=== PATIENT | female | born 1980 | race African-American/Black ===

== ENCOUNTER 2019-03-08 14:17 | Emergency (ER) | payer OTHER ==
--- NOTE | 2019-03-08 14:23 | PDOC ---
Rapid Medical Evaluation Time Seen by Provider: 03/08/19 14:21 Medical Evaluation: 03/08/19 14:21 HPI: Back pain and abdominal pain x 2 days PE: no gross deficit ORDERS Labs and Tylenol 03/08/19 14:23 Discharge Disposition - Diagnosis Back pain - Referrals - Patient Instructions - Post Discharge Activity
[2019-03-08] MEDS ORDERED: ACETAMINOPHEN 500 MG TABLET (FP) PO ONE (14:24)
[2019-03-08 14:26] VITALS: PULSE 109; BMI 33.2
[2019-03-08] MEDS ORDERED: SODIUM CHLORIDE 0.9% 500 ML INFUS.BAG IV ONE ×2 (14:45→15:36)
[2019-03-08] MEDS ORDERED: morphine CARPU-JECT 4 MG/1 ML DISP.SYRIN IVPUSH ONE (15:36)
[2019-03-08] MEDS ORDERED: ONDANSETRON 4 MG/2 ML VIAL IVPUSH ONE (15:37)
--- NOTE | 2019-03-08 15:38 | PDOC ---
Documentation entered by Susan Jane SCRIBE, acting as scribe for Christal Price MD. Christal Price MD: This documentation has been prepared by the Lucinda lane Adrianna, SCRIBE, under my direction and personally reviewed by me in its entirety. I confirm that the documentation accurately reflects all work, treatment, procedures, and medical decision making performed by me. History of Present Illness - General Chief Complaint: Pain Stated Complaint: BACK PAIN/ABDOMINAL PAIN Time Seen by Provider: 03/08/19 14:21 History Source: Patient Exam Limitations: No Limitations - History of Present Illness Initial Comments: 03/08/19 17:05 The patient is a 38 year old female, with a PMH of HTN, presenting with abdominal pain for 4 days. Patient notes complains of diffuse abdominal pain, worst at the suprapubic region, tender to touch, exacerbated with passing bowel or urination, and is described as sore inside. She endorses associated low back pain that radiates to the mid-back and bilateral thighs. Patient reports one episode of loose, watery stool today without blood, and increased urinary frequency (which she associates with her BP medications). She reports feeling nauseous, but denies any vomit at this time. Patient complains of chest pain that is induced when the abdominal pain is present. She reports feeling dizzy yesterday, but denies any dizziness today. Patient endorses a mild headache and generalized weakness while in the ED. She has tried motrin (for her pain) with some relief of symptoms. Denies chills, cough, runny nose, SOB, palpitation, hematuria, numbness, tingling, leg swelling, rash. No sick contacts or travel. No new changes in medications. No suspicious food intake. Allergies: None Past Medical History: as documented in EMR/HPI Social history: Lives with family. No tobacco, ETOH or drug use. Surgical history: x2 Meds: as documented in EMR Family history: noncontributory PMD: Dr. Longoria Past History - Past Medical History Allergies/Adverse Reactions: Allergies Allergy/AdvReac Type Severity Reaction Status Date / Time No Known Allergies Allergy Verified 03/08/19 14:23 COPD: No HTN: Yes - Suicide/Smoking/Psychosocial Hx Smoking History: Never smoked Review of Systems - Review of Systems Comments:: 03/08/19 17:05 Review of systems Constitutional: +Fever. +Generalized weakness. no chills. No weakness HEENT: +Mild headache. +One episode of dizziness yesterday. No congestion. No visual/hearing disturbances. CVS: +Chest pain (secondary to abdominal pain) no syncope. Resp: no sob. No cough. Gastrointestinal: +Diffuse abdominal pain, worst at the suprapubic region. + Nausea. +Abdominal pain with urination. +Diarrhea. +Abdominal pain with passing stool. no vomiting. Genitourinary: +Urinary frequency (believed to be secondary to HTN meds). no hematuria. MUSCULOSKELETAL: +Low back pain that radiates to the mid back and bilateral thighs. No joint swelling. No neck pain. SKIN: no redness or skin changes, no discharge, no rash. No wounds. Hematologic: no easy bruising/bleeding. NEUROLOGIC: +Mild headache. +One episode of dizziness yesterday. No LOC or altered mental status. No numbness or tingling. Psych: no anxiety or depression Allergic/Immunologic: no allergies All other systems reviewed and negative, or as documented in HPI. *Physical Exam - Vital Signs Last Vital Signs Temp Pulse Resp BP Pulse Ox 102.4 F H 109 H 20 143/90 98 03/08/19 14:23 03/08/19 14:23 03/08/19 14:23 03/08/19 14:23 03/08/19 14:23 - Physical Exam Comments: 03/08/19 17:05 Physical exam General: +Febrile. malaised appearing. awake and alert HEENT: NCAT, PERRL, EOMI, clear conjunctiva, anicteric, moist mucus membranes, clear oropharynx, no oral lesions.. Neck: neck supple, FROM Resp: CTAB, normal and even respirations, no respiratory distress CVS: tachycardic., no murmurs, 2+ peripheral pulses throughout, no peripheral edema Abdomen: +Diffuse abdominal tenderness to palpation. +Left sided and suprapubic region rebound tenderness. soft, ND, no guarding. No CVAT. no flank tenderness. Back: nontender, normal inspection and ROM. no flank tenderness. MSK: no edema, HAQ x4, ROM intact. No clubbing or cyanosis. normal bulk and tone. Extremities: no calf tenderness Neuro: alert, oriented appropriately; no focal neurologic deficits Psych: Calm and cooperative Skin: warm and well perfused, cap refill <2 sec, normal color 03/08/19 21:02 ED Treatment Course - LABORATORY CBC & Chemistry Diagram: 03/08/19 16:30 03/08/19 16:30 - RADIOLOGY Radiology Studies Ordered: Category Date Time Status ABDOMEN & PELVIS CT WITH CONTR [CT] Stat CT Scan 03/08/19 15:37 Ordered Medical Decision Making - Medical Decision Making 03/08/19 15:38 See HPI for details. Prior notes reviewed, including admissions, discharges and consultations. Vital signs reviewed, +fever and tachycardia Vital Signs Temp Pulse Resp BP Pulse Ox 102.4 F H 109 H 20 143/90 98 03/08/19 14:23 03/08/19 14:23 03/08/19 14:23 03/08/19 14:23 03/08/19 14:23 DDx abdominal pain: Renal colic, biliary colic, metabolic/electrolyte derangements. GERD, PUD, esophageal spasm, pancreatitis, hepatitis, constipation , colitis, gastroenteritis, cholecystitis, UTI, pyelonephritis, ileus, SBO, medication side effect, hernia, appendicitis, diverticulitis, mesenteric ischemia. msk strain, mesenteric adenitis, psoas abscess. ovarian cyst/rupture. laboratory results and imaging reviewed, basic labs and lytes wnl, notable for normal wbc ct LFTs/lipase_normal UA_unremarkable, some ketones/protein; no s/s infection. ED course -interventions:IVF, tylenol, analgesia, zofran, reassess CT a/p to eval for appy, diverticulitis, intra abdominal infection/inflammation. could be early gastroenteritis with diarrhea/AP and fever, CT to better delineate etiology CT scan with IV contrast The patient has been educated on the risks and benefits of exam including nephrotoxicity/renal injury and organ failure. Hydration with IV fluids GFR 60-45 can receive oral hydration. spoke with Dr Montes, can get CT scan with IV contrast with labs. s/o pending CT imaging, repeat VS, reeval and ultimate dispo. 03/08/19 18:18 03/08/19 20:39 03/08/19 20:40 *DC/Admit/Observation/Transfer Diagnosis at time of Disposition: Abdominal pain, Fever - Discharge Dispostion Condition at time of disposition: Stable Decision to Admit order: No - Referrals Referrals: Jonas Longoria MD [Primary Care Provider] - - Patient Instructions - Post Discharge Activity
[2019-03-08] MEDS ORDERED: ONDANSETRON 4 MG/2 ML VIAL ONE (16:06)
[2019-03-08] MEDS ORDERED: morphine SULFATE 4 MG/ML VIAL ONE (16:06)
[2019-03-08 16:54] LABS: BASO % 0.1 % (0-2.0); EOS % 0.2 % (0-4.5); HEMATOCRIT 34.4 % (32.4-45.2); HEMOGLOBIN 11.1 GM/dL (10.7-15.3); MCH 25.9 pg (25.7-33.7); MCHC 32.2 g/dl (32.0-36.0); MEAN CELL VOLUME 80.3 fl (80-96); MEAN PLT VOLUME 8.8 fl (7.5-11.1); MONO % 7.3 % (3.8-10.2); NEUT % 85.4 % (42.8-82.8); PLATELET COUNT 210 K/MM3 (134-434); RBC 4.29 M/mm3 (3.60-5.2); RDW 14.7 % (11.6-15.6); WHITE BLOOD COUNT 7.8 K/mm3 (4.0-10.0)
[2019-03-08 17:22] LABS: ALBUMIN 3.8 g/dl (3.4-5.0); BILIRUBIN,TOTAL 0.8 mg/dL (0.2-1); BLOOD UREA NITROGEN 12.5 mg/dL (7-18); CALCIUM 9.5 mg/dL (8.5-10.1); CREATININE 1.4 mg/dL (0.55-1.3); POTASSIUM 3.7 mmol/L (3.5-5.1)
[2019-03-08 17:23] LABS: URINE APPEARANCE Clear; URINE BILIRUBIN 1+ (NEGATIVE); URINE COLOR Yellow; URINE GLUCOSE (UA) Negative (NEGATIVE); URINE KETONE 1+ (NEGATIVE); URINE LEUK ESTERASE Negative (NEGATIVE); URINE NITRITE Negative (NEGATIVE); URINE PROTEIN 2+ (NEGATIVE)
--- NOTE | 2019-03-08 19:55 | PDOC ---
*Physical Exam - Vital Signs Last Vital Signs Temp Pulse Resp BP Pulse Ox 102.4 F H 109 H 20 143/90 98 03/08/19 14:23 03/08/19 14:23 03/08/19 14:23 03/08/19 14:23 03/08/19 14:23 ED Treatment Course - LABORATORY CBC & Chemistry Diagram: 03/08/19 16:30 03/08/19 16:30 - ADDITIONAL ORDERS Additional order review: Laboratory Results 03/08/19 03/08/19 03/08/19 16:30 16:30 16:30 Sodium Potassium Chloride Carbon Dioxide Anion Gap BUN Creatinine Est GFR (CKD-EPI)AfAm Est GFR (CKD-EPI)NonAf Random Glucose Calcium Total Bilirubin AST ALT Alkaline Phosphatase Total Protein Albumin Lipase 79 Urine Color Yellow Urine Appearance Clear Urine pH 6.0 Ur Specific [place] 1.025 Urine Protein 2+ H Urine Glucose (UA) Negative Urine Ketones 1+ H Urine Blood Trace-lysed Urine Nitrite Negative Urine Bilirubin 1+ H Urine Urobilinogen 1.0 Ur Leukocyte Esterase Negative Urine HCG, Qual Negative 03/08/19 16:30 Sodium 135 L Potassium 3.7 Chloride 98 Carbon Dioxide 28 Anion Gap 9 BUN 12.5 Creatinine 1.4 H Est GFR (CKD-EPI)AfAm 54.33 Est GFR (CKD-EPI)NonAf 46.88 Random Glucose 92 Calcium 9.5 Total Bilirubin 0.8 AST 17 ALT 21 Alkaline Phosphatase 79 Total Protein 8.0 Albumin 3.8 Lipase Urine Color Urine Appearance Urine pH Ur Specific [place] Urine Protein Urine Glucose (UA) Urine Ketones Urine Blood Urine Nitrite Urine Bilirubin Urine Urobilinogen Ur Leukocyte Esterase Urine HCG, Qual 03/08/19 16:30 RBC 4.29 MCV 80.3 MCHC 32.2 RDW 14.7 MPV 8.8 Neutrophils % 85.4 H Lymphocytes % 7.0 L Monocytes % 7.3 Eosinophils % 0.2 Basophils % 0.1 - RADIOLOGY Radiology Studies Ordered: Category Date Time Status TRANSVAGINAL ULTRASOUND US [US] Stat Ultrasound 03/08/19 19:52 Ordered - Medications Given in the ED: ED Medications Discontinued Medications Generic Name Dose Route Start Last Admin Trade Name Freq PRN Reason Stop Dose Admin Acetaminophen 1,000 mg 03/08/19 14:24 03/08/19 16:51 Tylenol - PO 03/08/19 14:25 Not Given ONCE ONE Morphine Sulfate 4 mg 03/08/19 15:36 03/08/19 16:35 Morphine Injection - IVPUSH 03/08/19 15:37 4 mg ONCE ONE Administration Ondansetron HCl 4 mg 03/08/19 15:37 03/08/19 16:35 Zofran Injection IVPUSH 03/08/19 15:38 4 mg ONCE ONE Administration Sodium Chloride 1,000 ml 03/08/19 14:45 03/08/19 16:51 Normal Saline - IV 03/08/19 14:46 1,000 ml ONCE ONE Administration Sodium Chloride 1,000 ml 03/08/19 15:36 03/08/19 16:52 Normal Saline - IV 03/08/19 15:37 1,000 ml ONCE ONE Administration Medical Decision Making - Medical Decision Making 03/08/19 19:[address] Price. Patient is a 38 yo female w/ pmh of HTN who presents for evaluation of abdominal pain. Patient pending CT abd/pelvis at signout which was negative for appendicitis or diverticulitis however revealed pelvic free fluid as well as cystic changes to ovaries (R > L). Given findings on CT, TVUS ordered for further evaluation of fluid and ovarian changes. Patient also noted to be febrile; will perform vaginal exam for r/o PID. 03/08/19 20:17 Vaginal Exam: No CMT, no blood noted in vaginal vault, physiologic discharge. No adnexal tenderness. Pelvic wall tenderness midline. 03/08/19 23:12 US significant for enlarged R ovary w/ multiple complex cysts likely hemorrhagic in nature as well as free fluid in R adnexal region and cul-de-sac. Patient discussed with IMAGING TECH who recommended ABX for suspected corpus luteum cyst rupture. ABX ordered and will re-evaluate patient for discharge. 03/09/19 00:19 Patient received ABX and temperature decreased to 100.1. Discharging to home for further outpatient f/u w/ IMAGING TECH. *DC/Admit/Observation/Transfer Diagnosis at time of Disposition: Abdominal pain Qualifiers: Abdominal location: unspecified location Qualified Code(s): R10.9 - Unspecified abdominal pain Fever Qualifiers: Fever type: unspecified Qualified Code(s): R50.9 - Fever, unspecified - Discharge Dispostion Disposition: HOME Condition at time of disposition: Stable - Prescriptions Prescriptions: Doxycycline Hyclate 100 mg PO BID #28 tablet metroNIDAZOLE [Flagyl -] 500 mg PO BID #28 tablet - Referrals Referrals: Jonas Longoria MD [Primary Care Provider] - Aissatou Toledo MD [Staff Physician] - Bette Moraes MD [Staff Physician] - - Patient Instructions Additional Instructions: You were evaluated today in the ER for your pain. We performed CT scan as well as Ultrasound which revealed pelvic fluid and cysts on your ovaries. We consulted with IMAGING TECH who suggested antibiotics and further outpatient follow- up. A prescription has been sent to your pharmacy - please take all medications as proscribed. Follow-up with IMAGING TECH for further evaluation as discussed. Return to ER if any further fever, chills, pain, or other concerning symptoms. - Post Discharge Activity
[2019-03-08] MEDS ORDERED: METOCLOPRAMIDE HCL INJECTION 10 MG/2 ML VIAL IVPB ONE (20:17)
[2019-03-08] MEDS ORDERED: METOCLOPRAMIDE HCL INJECTION 10 MG/2 ML VIAL ONE (20:36)
[2019-03-08] MEDS ORDERED: CEFTRIAXONE 1,000 MG in DEXTROSE 5%-WATER - 50 ML IVPB ONE (23:00)
[2019-03-08 23:09] LABS: EPI CELLS 4.7 /HPF (0-5/HPF); HYALINE CASTS 25.23 /lpf (0-8); URINE BACTERIA 7.3 /hpf (NEGATIVE); URINE RBC 3.5 /hpf (0-4); URINE WBC 2.4 /hpf (0-5)
[2019-03-08 23:12] VITALS: BP 118/71
[2019-03-09 00:16] VITALS: TEMP 100.1
== END 2019-03-09 00:58 | disposition home or self-care (01) ==
LOC: JER 14:17
PROC: 3E03329 Introduction of Other Anti-infective into Peripheral Vein, Percutaneous Approach (ICD-10-PCS; principal; 2019-03-08)
PROC: 3E033NZ Introduction of Analgesics, Hypnotics, Sedatives into Peripheral Vein, Percutaneous Approach (ICD-10-PCS; 2019-03-08)
PROC: 3E033GC Introduction of Other Therapeutic Substance into Peripheral Vein, Percutaneous Approach (ICD-10-PCS; 2019-03-08)
PROC: 3E033GC Introduction of Other Therapeutic Substance into Peripheral Vein, Percutaneous Approach (ICD-10-PCS; 2019-03-08)
DX: N83.201 Unspecified ovarian cyst, right side (principal); R10.9 Unspecified abdominal pain; R50.9 Fever, unspecified; I10 Essential (primary) hypertension; R51 Headache; R42 Dizziness and giddiness
CPT/HCPCS: 36415; 74177-TC; 76830-TC; 80053; 81003; 83690; 84703; 85025; 87040; 87070; 87077; 87086; 87205; 87491; 87591; 99282-25

== ENCOUNTER 2019-06-28 08:53 | Day surgery (SDC) | payer OTHER ==
[2019-06-27 15:26] VITALS: BMI 32.5
[2019-06-28 09:51] LABS: BASO % 0.5 % (0-2.0); EOS % 3.6 % (0-4.5); HEMATOCRIT 37.8 % (32.4-45.2); HEMOGLOBIN 12.3 GM/dL (10.7-15.3); LYMPH % 36.9 % (8-40); MCH 25.9 pg (25.7-33.7); MCHC 32.6 g/dl (32.0-36.0); MEAN CELL VOLUME 79.3 fl (80-96); MEAN PLT VOLUME 10.3 fl (7.5-11.1); MONO % 9.8 % (3.8-10.2); NEUT % 49.2 % (42.8-82.8); PLATELET COUNT 170 K/MM3 (134-434); RBC 4.76 M/mm3 (3.60-5.2); RDW 15.9 % (11.6-15.6); WHITE BLOOD COUNT 3.4 K/mm3 (4.0-10.0)
[2019-06-28 10:03] LABS: PROTHROMBIN TIME (PATIENT) 11.8 SEC (9.7-13.0)
[2019-06-28 10:20] LABS: ALBUMIN 3.9 g/dl (3.4-5.0); ALK PHOS 56 U/L (45-117); ANION GAP 4 MMOL/L (8-16); BILIRUBIN,TOTAL 0.2 mg/dL (0.2-1); BLOOD UREA NITROGEN 16.4 mg/dL (7-18); CHLORIDE 104 mmol/L (98-107); CO2 29 mmol/L (21-32); GLUCOSE,RANDOM 95 mg/dL (74-106); POTASSIUM 3.9 mmol/L (3.5-5.1); SGOT/AST 27 U/L (15-37); SGPT/ALT 45 U/L (13-61); SODIUM 137 mmol/L (136-145); TOT PROT 8.1 g/dl (6.4-8.2)
[2019-06-28] MEDS ORDERED: fentaNYL CITRATE 250 MCG/5 ML VIAL ONE (10:26)
[2019-06-28] MEDS ORDERED: ROCURONIUM BROMIDE 50 MG/5 ML SYRINGE ONE (10:26)
[2019-06-28] MEDS ORDERED: DEXAMETHASONE SOD PHOSPHATE 4 MG/1 ML VIAL ONE (10:26)
[2019-06-28] MEDS ORDERED: LIDOCAINE HCL/PF 2% SDV 5ML VIAL ONE (10:26)
[2019-06-28] MEDS ORDERED: KETOROLAC TROMETHAMINE 30 MG/1 ML VIAL ONE (10:26)
[2019-06-28] MEDS ORDERED: PROPOFOL 20 ML ONE (10:27)
[2019-06-28] MEDS ORDERED: MIDAZOLAM HCL 2 MG/2 ML SINGLE DOSE VIAL ONE (10:28)
[2019-06-28] MEDS ORDERED: CLINDAMYCIN PHOSPHATE 600 MG/4 ML VIAL ONE (12:02)
[2019-06-28] MEDS ORDERED: GENTAMICIN SO4 80 MG/2 ML VIAL ONE (12:03)
[2019-06-28] MEDS ORDERED: CLINDAMYCIN 600 MG PREMIX BAG IVPB ONE (12:04)
[2019-06-28] MEDS ORDERED: GENTAMICIN 80MG PREMIX BAG IVPB ONE (12:04)
[2019-06-28] MEDS ORDERED: BUPIVACAINE HCL/PF 2.5 MG/ML - 30 ML VIAL IJ ONE ×2 (12:05→12:37)
[2019-06-28] MEDS ORDERED: GLYCOPYRROLATE 0.2 MG/1 ML VIAL ONE ×2 (12:27)
[2019-06-28] MEDS ORDERED: NEOSTIGMINE METHYLSULFATE 0.5 MG/ML - 10 ML MDV ONE (12:27)
--- NOTE | 2019-06-28 13:07 | OP ---
Operative Note - Note: Operative Date: 06/28/19 Pre-Operative Diagnosis: right adenexal mass Operation: s/p robotic assisted right hydrosalpingectomy, lysis of adhesion Surgeon: Chani Sargent [facility] Programmer: Rivka Jasso Anesthesiologist/TESTING AND REGULATING CHIEF: Job Cassidy Anesthesia: General Specimens Removed: right peritubal adhesion, proximal right fallpian tube, Estimated Blood Loss (mls): 20 Drains, Volume Out (mls): 100 (nielson) Fluid Volume Replaced (mls): 1,100 Operative Report Dictated: Yes
--- NOTE | 2019-06-28 13:08 | SURG ---
Surgery Braille Proofreader Note Braille Proofreader: Rivka Jasso PA-C Date of Service: 06/28/19 Diagnosis: right adenexal mass Procedure: s/p robotic assisted right hydrosalpingectomy, lysis of adhesion I was present for the entirety of the operative procedure. For further detail, please refer to operative report. Visit type - Case Type Case Type: Scheduled - Emergency Emergency Visit: No - New patient This patient is new to me today: Yes Date on this admission: 06/28/19
[2019-06-28] MEDS ORDERED: ONDANSETRON 4 MG/2 ML VIAL IVPUSH PRN (13:10)
[2019-06-28] MEDS ORDERED: PROMETHAZINE HCL 25 MG/1 ML VIAL IVPB PRN (13:10)
[2019-06-28] MEDS ORDERED: oxyCODONE HCL 5 MG TABLET PO PRN (13:10)
[2019-06-28] MEDS ORDERED: ACETAMINOPHEN INJECTION 0 ML IVPB ONE (13:24)
--- NOTE | 2019-06-28 16:30 | OP ---
DATE OF OPERATION: 06/28/2019 PREOPERATIVE DIAGNOSIS: Right adnexal mass. POSTOPERATIVE DIAGNOSIS: Right hydrosalpinx and probable prior pelvic inflammatory disease. SURGEON: Chani Sargent MD. STAFF MIDWIFE: BOBBY Albarran. ANESTHESIA: General endotracheal and local. ESTIMATED BLOOD LOSS: 25 mL. COMPLICATIONS: None. INDICATION: This is a 38-year-old 2, para 2 with a history of a large right complex adnexal mass seen on CT scan and ultrasound. She had an elevated HE4 as well. The patient strongly desired future fertility. She had been having infertility for 8 years. We had counseled preoperatively, and we agreed that we would only perform hysterectomy in the event of a malignancy or bilateral salpingooophorectomy, only in the event of malignancy. Risks, benefits, indications, alternatives were discussed with the patient. All questions were answered, informed consent was signed. FINDINGS: Intraabdominal findings, normal liver edge, normal diaphragm. Uterus was approximately 6 to 8 weeks' size, and globular. The right ovary and tube were indistinguishable. They appeared as 1 large pink structure. There were multiple peritoneal adhesions consistent with peritoneal inclusion cysts surrounding the uterus and pelvis, now anteriorly involving the bladder as well as posterior around the uterus and the rectum. The right ovary when upon dissection trying to free it from the fallopian tube and the pelvic sidewall, there appeared to be a thick, yellow, purulent-appearing fluid arising from the right tuboovarian complex. Upon further dissection of the fallopian tube, it appeared that the right ovary was normal and the right fallopian tube was the hydrosalpinx. The left fallopian tube, the fimbria appeared clubbed, but the tube itself was not dilated. The ovary on the left appeared normal. There was no evidence of endometriosis. There just were extensive peritubular adhesions bilaterally and extensive peritoneal adhesions in the pelvis and around the rectum as well; these were all freed. DESCRIPTION OF PROCEDURE: The patient was taken to the operating room, placed in the dorsal supine position. General endotracheal anesthesia was obtained without difficulty. She was placed in the dorsal lithotomy position in Cal stirrups and prepped and draped in normal, sterile fashion. A Copeland catheter was placed in the bladder. Attention was turned to patient's abdomen. 5 mL of 0.25% Marcaine was injected into the umbilicus, and an 8-mm incision was made with the scalpel. While tenting the anterior abdominal wall, the Veress needle was inserted intraabdominally, and the abdomen was insufflated with CO2 gas. An 8-mm trocar was placed and intraabdominal placement was confirmed by direct visualization of laparoscope. Additional 8-mm incisions were placed in the left and right mid quadrants, and a 5-mm Air Seal port was placed in the left lower quadrant. All trocars were placed under direct visualization after injecting 0.25% Marcaine. A thorough exam of the abdomen and pelvis revealed the above-noted findings. At this point, we freed the adhesions around the uterus and the tubes. The right tuboovarian complex was grasped and elevated and dissected away from the pelvic sidewall. At this point, there was an egress of the thick, yellowish fluid. A sample of this fluid was sent for culture. The tube was able to be identified separately from the ovary, and it was handed off the field as proximal right fallopian tube, and then what is likely the distal fallopian tube was removed separately as well . The ovary was left in place. Excellent hemostasis was seen, and the left adnexa was examined. The left tube appeared to be clubbed; however, the patient strongly desired future fertility and had not explicitly consented for bilateral salpingectomy, as this would definitely deem the patient infertile and require in vitro fertilization; this conversation had not been had, therefore decision was made to leave the left fallopian tube for further evaluation. She can have an HSG to evaluate if the tube is definitely blocked, and if so at that point if she is going to have IVF, then that could be removed at a later date, could be done laparoscopically. Otherwise, at this point we determined to terminate the procedure. Surgicel was placed along the right ovary for added insurance. Pelvis had been thoroughly irrigated. All instruments removed from the patient's abdomen. The da Brenton robot was then undocked, all trocars removed. Copeland catheter was removed. The skin was closed with 4-0 Monocryl. Dermabond was applied. The patient was extubated and transferred in stable condition to PACU. Jimmy [id number] [facility] HOSPITALMilka
[2019-06-28 18:03] VITALS: BP 126/84; PULSE 66; TEMP 98
--- NOTE | 2019-06-29 15:04 | PATH ---
Surgical Pathology Report Patient Name: [facility] GRIFF[facility]. Rec. #: [id number] /Age/Gender: 1980 (Age: 38) / F Account: [id number] Location: [facility] SURGICAL Taken: 06/28/2019 Received: 06/28/2019 Reported: 06/29/2019 Physicians: Chani Sargent MD Specimen(s) Received A: RIGHT PERITUBULAR ADHESIONS B: PROXIMAL RIGHT FALLOPIAN TUBE C: ADNEXAL MASS, POSSIBLE HYDROSALPINX, RIGHT Clinical History Right adnexal mass, elevated HE4 Final Diagnosis A. PERITUBULAR ADHESIONS, RIGHT, LYSIS/ EXCISION: DENSE FIBROUS ADHESIONS. B. PROXIMAL FALLOPIAN TUBE, RIGHT, ROBOTIC LAPAROSCOPIC SALPINGECTOMY: LUMINAL PORTION OF FALLOPIAN TUBE WITH DENSE SEROSAL ADHESIONS. C ADNEXAL MASS, POSSIBLE HYDROSALPINX, RIGHT, EXCISION: CONSISTENT WITH PORTION OF FALLOPIAN TUBE WITH CHRONIC SALPINGITIS. Electronically Signed Migdalia Sanchez M.D. Gross Description A. Received in formalin labeled "right bandar-tubular adhesions," is a 1.9 x 1.4 x 0.3 cm aggregate of jaramillo-red portions of soft tissue. The specimen is submitted in toto in one cassette. B. Received in formalin labeled "fallopian tube proximal right," is a 1.9 x 0.9 x 0.8 cm jaramillo-pink portion of tissue, possibly consistent with a portion of fallopian tube. No fimbria are present. The outer surface is jaramillo-pink with fibrous adhesions. Sectioning reveals a possible fallopian tube lumen. The specimen is serially sectioned and entirely submitted in one cassette. C. Received in formalin labeled "right adnexal mass possible hydrosalpinx," is a 4.3 x 1.0 x 0.9 cm jaramillo-pink, irregular portion of fibrous tissue, possibly consistent with a disrupted portion of fallopian tube. The specimen is serially sectioned and entirely submitted in 3 cassettes. DL/06/28/2019 saudi06/28/2019
== END 2019-06-28 17:40 | disposition home or self-care (01) ==
LOC: JASU-SURG 08:53
PROVIDERS: ATTEND Obstetrics & Gynecology Gynecologic Oncology
PROC: 0UT54ZZ Resection of Right Fallopian Tube, Percutaneous Endoscopic Approach (ICD-10-PCS; principal; 2019-06-28 10:30)
DX: N70.11 Chronic salpingitis (principal); N73.6 Female pelvic peritoneal adhesions (postinfective); K66.8 Other specified disorders of peritoneum
CPT/HCPCS: 58661; S2900; 36415; 80053; 84702; 85025; 85610; 86850; 86900; 86901; 87070; 87075; 87205; 88302-TC; 88304-TC; 94760; J0131